=== PATIENT | female | born 1975 | race Caucasian/White ===

== ENCOUNTER → 2016-10-20 | Outpatient (CLI) | payer OTHER | LOC: EMI 08:25 | DX: M54.16 Radiculopathy, lumbar region (principal); M53.3 Sacrococcygeal disorders, not elsewhere classified; M47.814 Spondylosis without myelopathy or radiculopathy, thoracic region | CPT/HCPCS: 72148 ==

== ENCOUNTER → 2020-10-11 | Outpatient (CLI) | payer OTHER ==
[~2020-10-11] MED LIST: ASPIRIN 325MG325 MG PO; BACTRIM DS TAB1 EACH PO; BREO ELLIPTA 21 EACH INH; BUSPIRONE HCL15 MG PO; CYMBALTA60 MG PO; DOXEPIN HCL10 MG PO; ETODOLAC500 MG PO; FLONASE 0.05% N16 GM; GABAPENTIN400 MG PO; IBUPROFEN800 MG PO; IMITREX100 MG PO; KEFLEX CAP 500500 MG PO; MICROZIDE12.5 MG PO; MOBIC15 MG PO; PERCOCET 5/325 T1 EA PO; PRINIVIL20 MG PO; PROAIR HFA8.5 GM INH; SINGULAIR10 MG PO; TROKENDI XR100 MG PO; VITAMIN C 500500 MG PO; VITAMIN D PO; WELLBUTRIN 100100 MG PO; ZOFRAN4 MG PO
== END ==
LOC: KOH-I 13:48
DX: S92.351D Displaced fracture of fifth metatarsal bone, right foot, subsequent encounter for fracture with routine healing (principal); S92.252D Displaced fracture of navicular [scaphoid] of left foot, subsequent encounter for fracture with routine healing; Z98.890 Other specified postprocedural states; X58.XXXD Exposure to other specified factors, subsequent encounter
CPT/HCPCS: 73630

== ENCOUNTER → 2020-11-22 | Outpatient (CLI) | payer OTHER | LOC: KOH-I 10:47 | DX: S92.252A Displaced fracture of navicular [scaphoid] of left foot, initial encounter for closed fracture (principal); S92.351A Displaced fracture of fifth metatarsal bone, right foot, initial encounter for closed fracture; X58.XXXA Exposure to other specified factors, initial encounter | CPT/HCPCS: 73630 ==

== ENCOUNTER → 2020-12-07 | Outpatient (CLI) | payer OTHER | LOC: KOH-I 10:47 | DX: S72.143D Displaced intertrochanteric fracture of unspecified femur, subsequent encounter for closed fracture with routine healing (principal); M89.8X6 Other specified disorders of bone, lower leg | CPT/HCPCS: 73700 ==

== ENCOUNTER → 2020-12-18 | Outpatient (CLI) | payer OTHER | LOC: KOH-I 09:53 | DX: S92.351D Displaced fracture of fifth metatarsal bone, right foot, subsequent encounter for fracture with routine healing (principal); S92.252D Displaced fracture of navicular [scaphoid] of left foot, subsequent encounter for fracture with routine healing | CPT/HCPCS: 73630 ==

== ENCOUNTER → 2021-11-28 | Outpatient (CLI) | payer OTHER | LOC: KOH-I 10:42 | DX: S92.252D Displaced fracture of navicular [scaphoid] of left foot, subsequent encounter for fracture with routine healing (principal) | CPT/HCPCS: 73630 ==